=== PATIENT | female | born 2000 | race Caucasian/White ===

== ENCOUNTER 2021-07-19 12:28 | Outpatient (CLI) | payer MEDICAID, SELFPAY ==
[2021-07-20 22:07] LABS: Chlamydia By Nucleic Acid AMP Negative (Negative)
[2021-07-21 13:43] LABS: Gonococcus By Nucleic Acid AMP Negative (Negative)
[2021-07-26 22:42] LABS: HPV Reflexed? NOT INDICATED
== END 2021-07-19 23:59 | disposition home or self-care (01) ==
LOC: LABSPEC 12:30
PROVIDERS: PCP Pediatrics; Referring Provider Nurse Practitioner Women's Health; Visit Provider Nurse Practitioner Women's Health
DX: Z12.4 Encounter for screening for malignant neoplasm of cervix (principal); Z11.3 Encounter for screening for infections with a predominantly sexual mode of transmission
CPT/HCPCS: 87491; 87591; 88175; G0145

== ENCOUNTER 2021-08-25 13:07 | Emergency (ER) | payer MEDICAID, SELFPAY ==
[2021-08-25 13:09] VITALS: BP 103/81; PULSE 119; RESP 20; TEMP 36.6; O2SAT 99; BMI 32.1
--- NOTE | 2021-08-25 13:37 | US_ITS ---
STUDY: ULTRASOUND OF THE FEMALE PELVIS - COMPLETE REASON FOR EXAM: Female, 21 years old. menorrhagia6 WEEKS OF BLEEDING TECHNIQUE: Endovaginal. Transvaginal US was obtained to better visualized the ovaries. COMPARISON: None. FINDINGS: The uterus is anteverted retroflexed and is in a midline position. The uterus measures 10.6 x 5.9 cm. Normal uterine cervix. The endometrium measures 17.9 mm in thickness, and is heterogeneous (striated). There is no demonstrated endometrial mass. There is no demonstrated myometrial mass. I.U.D. - The patient does not have an I.U.D. The right ovary is visualized. The right ovary measures 3.5 x 2.6 cm. There is no right ovarian cyst or ovarian mass. There is no visualized right adnexal mass or complex lesion. There is normal arterial and normal venous vascularity. The left ovary is visualized. The left ovary measures 2.9 x 2 cm. There is no left ovarian cyst or ovarian mass. There is no visualized left adnexal mass or complex lesion. There is normal arterial and normal venous vascularity. There is minimal fluid in the cul-de-sac. US/Transvaginal Non- IMPRESSION: There is free fluid in the pelvis. This can be physiologic. Prominent endometrial stripe may relate to the patient''s menstrual cycle. Electronically Signed: Pablito Phillips MD at 15:29 EDT ,
--- NOTE | 2021-08-25 13:39 | ED.VIS.FEGU ---
HPI HPI - Female History of Present Illness Chief Complaint: Vag Bleeding Informant: patient Pain Pain: Positive for Pelvic Pain Bleeding Issue: Positive for Vaginal bleeding Onset: Weeks Context: Gradual Onset Timing: Waxes and wanes Current Severity: Heavy Maximum Severity: Heavy Narrative Narrative: Patient presents secondary to heavy vaginal bleeding with cramping. She states has a history of irregular periods. She has now been bleeding for the last 5 to 6 weeks. She was on Aygestin which did not stop her bleeding. She was seen in the emergency room in [place] 2 days ago. Lab work revealed a hemoglobin of [address] scan was unremarkable. She was seen by Jennifer Muñoz from [facility] yesterday. She was advised to stop Aygestin and was to start Sprintec this weekend. Patient states her bleeding is heavier now and she is saturating a tampon every 30 minutes. She called the [facility] office today and was advised to come to [place] [facility] to get ultrasound and work-up. [facility] Medical History Irregular menses Home Medications buspirone 5 mg tablet 5 mg PO BID 08/24/21 [History Last Taken Unknown] hyoscyamine sulfate 0.125 mg tablet 0.125 mg PO BID-QID PRN 08/24/21 [History Last Taken Unknown] naproxen 500 mg tablet 500 mg PO BID PRN 08/24/21 [History Last Taken Unknown] norgestimate 0.25 mg-ethinyl estradiol 35 mcg tablet 1 tab PO QDAY #28 tab 08/24/21 [Rx Last Taken Unknown] omeprazole 20 mg capsule,delayed release 20 mg PO DAILY 08/24/21 [History Last Taken Unknown] sertraline 25 mg tablet 25 mg PO DAILY 08/24/21 [History Last Taken Unknown] promethazine 08/25/21 [History Last Taken Unknown] tranexamic acid [Lysteda] 1,300 mg PO TID #30 tab 08/25/21 [Rx Last Taken Unknown] Allergy/AdvReac Type Severity Reaction Status Date / Time No Known Allergies Allergy Verified 08/25/21 13:12 Surgical History History of colonoscopy History of endoscopy Social History household members: friend(s) current occupational status: employed current occupation: [employer] Smoking Status: Never smoker alcohol intake: never substance use type: marijuana diet: gluten free what type of physical activity do you participate in: walking frequency: 3-4 times per week seatbelt use: always do you feel safe at home: Yes additional social history: single ROS ROS ED Constitutional Constitutional ED: Reports sweats; Denies chills or fever(s) Eyes Eyes: Denies change in vision ENT ENT ED: Denies sore throat Cardiovascular Cardiovascular: Denies chest pain Respiratory/Chest Respiratory/Chest: Denies cough or dyspnea Gastrointestinal Gastrointestinal: Reports abdominal pain, diarrhea, nausea and vomiting Genitourinary Genitourinary ED: Reports other Details: Heavy vaginal bleeding ; Denies dysuria Musculoskeletal Musculoskeletal: Denies back pain Integumentary Denies rash Neurologic Neurologic: Denies headache(s) Allergic/Immunologic Allergic/Immunologic ED: Denies urticaria EXAM Physical Exam Const Vital Signs: 08/25/21 13:09 08/25/21 15:34 08/25/21 16:10 Temperature 98 F Temperature Source Temporal Pulse Rate 119 H 108 H 101 H Respiratory Rate 20 H 13 17 Blood Pressure 103/81 H 128/79 H 123/91 H Blood Pressure Mean 88 95 101 Pulse Ox 99 97 100 Oxygen Delivery Method Room Air Room Air Room Air Positive well nourished and well developed General Appearance ED: well developed HEENT Reports moist mucous membranes Eyes PERRL and EOMs intact bilaterally Neck supple Chest Wall inspection of chest normal and palpation of chest normal Resp normal respiratory effort and clear to auscultation bilaterally Cardio regular rhythm Rate: tachycardic GI soft to palpation and non-tender Extremity normal to inspection Neuro oriented x3 Sensorium / Orientation: alert Psych mental status grossly normal Skin no rashes or lesions noted MDM MDM MDM Narrative Medical decision making narrative: Patient given 2 L of IV fluid. Small dose of fentanyl and Zofran given for pain and nausea. Lab work obtained along with pelvic ultrasound. Lab Data Attestation: I reviewed the patient's lab results. Labs: Laboratory Results - last 24 hr 08/25/21 08/25/21 08/25/21 13:55 13:55 13:55 WBC 9.1 RBC 4.77 Hgb 13.1 Hct 39.2 MCV 82.2 MCH 27.5 MCHC 33.4 RDW Std Deviation 35.2 RDW Coeff of Abhi 11.7 Plt Count 190 MPV 9.6 Immature Gran % (Auto) 0.400 Neut % (Auto) 81.0 H Lymph % (Auto) 10.9 L [place] % (Auto) 7.5 Eos % (Auto) 0.1 Baso % (Auto) 0.1 Absolute Neuts (auto) 7.4 Absolute Lymphs (auto) 0.99 Nucleated RBC % 0 PT 13.0 INR 1.0 APTT 27.1 Sodium 139 Potassium 3.4 L Chloride 109 H Carbon Dioxide 24.0 Anion Gap 6 BUN 9 Creatinine 0.64 Estim Creat Clear Calc 104.04 Est GFR (MDRD) Af Amer 149 Est GFR (MDRD) Non-Af 123 BUN/Creatinine Ratio 14.1 Glucose 97 Calcium 9.0 Serum , Qual Blood Type Antibody Screen 08/25/21 08/25/21 08/25/21 13:55 14:27 14:27 WBC RBC Hgb Hct MCV MCH MCHC RDW Std Deviation RDW Coeff of Abhi Plt Count MPV Immature Gran % (Auto) Neut % (Auto) Lymph % (Auto) [place] % (Auto) Eos % (Auto) Baso % (Auto) Absolute Neuts (auto) Absolute Lymphs (auto) Nucleated RBC % PT INR APTT Sodium Potassium Chloride Carbon Dioxide Anion Gap BUN Creatinine Estim Creat Clear Calc Est GFR (MDRD) Af Amer Est GFR (MDRD) Non-Af BUN/Creatinine Ratio Glucose Calcium Serum , Qual NEGATIVE Blood Type Cancelled B POSITIVE Antibody Screen Cancelled NEGATIVE Radiography Diagnostic Testing: Clinical Impression(s) from Imaging Studies Transvaginal US 08/25/21 13:37 IMPRESSION: There is free fluid in the pelvis. This can be physiologic. Prominent endometrial stripe may relate to the patient''s menstrual cycle. Electronically Signed: Pablito Phillips MD at 15:29 EDT , Treatment and Re-Evaluation Narrative: Hemoglobin today is 13.1 compared to hemoglobin of 14 Saturday night when she was seen at [place]. Remainder of labs are unremarkable. Pelvic ultrasound reveals prominent endometrial stripe measuring 17.9 mm in thickness. I did go back and do a pelvic exam. Vaginal vault is full of blood that cleared with approximately 5 or 6 of the cotton tip swabs. She is passing some small clots. Cervix is closed. I spoke Dr. Katz. She recommended starting the patient on Lysteda 1300 mg 3 times daily x5 days then start Sprintec control the following day. This was discussed with the patient. I do not have Lysteda on formulary at the hospital but the outpatient pharmacy does have it. Prescription will be sent there and patient will pick it up and take her first dose now with her second dose at bedtime tonight. Patient agreeable to plan. Return instructions provided. Addendum: Received a phone call from the pharmacist. The Lysteda is not covered by the patient's insurance. We will instead put her on Megace, 40 mg twice daily x3 days then once a day for a total of 30 tabs. She will start the Sprintec following this course of medication. Discharge Plan Triage Chief Complaint: Vag Bleeding ED Provider: Belem Rosenbaum Dx/Rx/DC Orders Clinical Impression: Menorrhagia Instructions: ED Heavy Menstrual Bleeding Prescriptions: New tranexamic acid [Lysteda] 650 mg tablet 1,300 mg PO TID Qty: 30 RF: 0 No Action naproxen 500 mg tablet 500 mg PO BID PRNRF: 0 buspirone 5 mg tablet 5 mg PO BID RF: 0 omeprazole 20 mg capsule,delayed release(DR/EC) 20 mg PO DAILY RF: 0 hyoscyamine sulfate 0.125 mg tablet 0.125 mg PO BID-QID PRN (Reason: Nausea) RF: 0 sertraline 25 mg tablet 25 mg PO DAILY RF: 0 norgestimate-ethinyl estradiol [Sprintec (28)] 0.25-35 mg-mcg tablet 1 tab PO QDAY Qty: 28 RF: 3 promethazine 25 mg tablet RF: 0 Primary Care Provider: Isi Hernandez Referrals: Jennifer Muñoz NP, CLINICAL LABORATORY TECHNICIAN-C [Nurse Practitioner] - 1 Week if not improving Isi Hernandez PA [Primary Care Provider] - Activity Restrictions/Additional Instructions: As discussed, please take this new medication 3 times a day for 5 days. The day after you complete this medication you may start the oral control pills. Disposition Disposition: Home, Self Care Discharge Date/Time: 08/25/21 16:34
[2021-08-25] MEDS: 0.9% Normal Saline 1,000 ML 1000 ML IV (14:02)
[2021-08-25] MEDS: Ondansetron 4 MG/2 ML Vial IV ×2 (14:02→15:40)
[2021-08-25] MEDS: fentaNYL 100 MCG/2 ML Ampul 25 MCG IV ×2 (14:02→15:40)
[2021-08-25 14:09] LABS: Absolute Lymphocyte Count 0.99 X10^3/uL (0.83-4.51); Absolute Neutrophil Count 7.4 X10^3/uL (2.0-7.7); Basophil# 0.01 X10^3/uL; Basophil% 0.1 % (0-1); Eosinophil# 0.01 X10^3/uL; Eosinophils% 0.1 % (0-5); Hematocrit 39.2 % (37-47); Hemoglobin 13.1 g/dL (12.0-15.0); Lymphocyte # 0.99 X10^3/ul (0.83-4.51); Lymphocyte % 10.9 % (19-41); Mean Corp Hgb Conc 33.4 g/dL (32-36); Mean Corpuscular Hgb 27.5 pg (27.0-32.0); Mean Corpuscular Volume 82.2 fL (81-99); Mean Platelet Vol. 9.6 fl (6.2-12.0); Monocyte# 0.68 X10^3/uL; Monocyte% 7.5 % (0-10); NRBC Flagged by Analyzer 0 % (0-5); Neutrophil # 7.37 X10^3/uL (2.7-7.7); Platelet Count 190 K/mm3 (150-450); RBC Distribution Width CV 11.7 % (11.6-14.6); RBC Distribution Width SD 35.2 fl (35.1-43.9); Red Blood Count 4.77 M/mm3 (4.2-5.4); White Blood Count 9.1 K/mm3 (4.4-11.0)
[2021-08-25 14:18] LABS: Partial Thromboplast Time 27.1 Seconds (24.1-36.2)
[2021-08-25 14:23] LABS: Anion Gap 6 (5-15); BUN 9 mg/dL (7-18); BUN/Creat Ratio 14.1 RATIO (10-20); Chloride 109 mmol/L (98-107); Creatinine, Serum 0.64 mg/dL (0.55-1.02); EST Glomerular Filtration Rate 123 mL/min (>60); Est Glom Filt Rate - Afr Amer 149 mL/min (>60); Estimated Creatinine Clearance 104.04 ml/min; Glucose 97 mg/dL (74-106); Potassium 3.4 mmol/L (3.5-5.1); Sodium Level 139 mmol/L (136-145)
[2021-08-25 14:51] LABS: Internal QC Validated? YES +Cl - CLEAR BKGD; Pregnancy, Serum, hCG Quali. NEGATIVE Negative
[2021-08-25 15:34] VITALS: BP 128/79; PULSE 108; RESP 13; O2SAT 97
[2021-08-25] MEDS: 0.9% Normal Saline 1,000 ML 150 ML IV (15:43)
[2021-08-25 16:10] VITALS: BP 123/91; PULSE 101; RESP 17; O2SAT 100
--- NOTE | 2021-08-25 16:10 | ED.RN ---
ASSISTED DR. MEIER WITH PELVIC EXAM. PT. TOLERATED WELL.
== END 2021-08-25 16:34 | disposition home or self-care (01) ==
PROVIDERS: Emergency Provider Emergency Medicine; PCP Physician Assistant Medical; Visit Provider Emergency Medicine
DX: N92.0 Excessive and frequent menstruation with regular cycle (principal)
CPT/HCPCS: 76830; 80048; 84703; 85025; 85610; 85730; 86850; 86900; 86901; 96361; 96374; 96375; 96376; 99284; J2405

== ENCOUNTER → 2021-09-27 | Outpatient (CLI) | payer MEDICAID, SELFPAY ==
[2021-09-27 13:40] LABS: Absolute Lymphocyte Count 1.26 X10^3/uL (0.83-4.51); Absolute Neutrophil Count 3.3 X10^3/uL (2.0-7.7); Basophil# 0.02 X10^3/uL; Basophil% 0.4 % (0-1); Eosinophil# 0.01 X10^3/uL; Eosinophils% 0.2 % (0-5); Hematocrit 33.3 % (37-47); Hemoglobin 10.7 g/dL (12.0-15.0); Lymphocyte # 1.26 X10^3/ul (0.83-4.51); Lymphocyte % 25.7 % (19-41); Mean Corp Hgb Conc 32.1 g/dL (32-36); Mean Corpuscular Hgb 26.1 pg (27.0-32.0); Mean Corpuscular Volume 81.2 fL (81-99); Mean Platelet Vol. 9.2 fl (6.2-12.0); Monocyte# 0.31 X10^3/uL; Monocyte% 6.3 % (0-10); NRBC Flagged by Analyzer 0 % (0-5); Neutrophil # 3.29 X10^3/uL (2.7-7.7); Neutrophil % 67.2 % (47-70); Platelet Count 213 K/mm3 (150-450); RBC Distribution Width CV 12.5 % (11.6-14.6); RBC Distribution Width SD 36.2 fl (35.1-43.9); White Blood Count 4.9 K/mm3 (4.4-11.0)
[2021-09-30 08:09] LABS: Factor VIII Activity 141 % (56-140); von Willebrand Factor (vWF) Ag 185 % (50-200); von Willebrand Factor Activity 115 % (50-200)
[2021-09-30 21:32] LABS: VWD Studies Interp Report Note (.)
== END | disposition home or self-care (01) ==
LOC: PAVLAB 13:14
PROVIDERS: PCP Physician Assistant Medical; Referring Provider Nurse Practitioner Women's Health; Visit Provider Nurse Practitioner Women's Health
DX: N92.1 Excessive and frequent menstruation with irregular cycle (principal)
CPT/HCPCS: 36415; 85025; 85240; 85245; 85246